=== PATIENT | female | born 1935 | race Caucasian/White ===

== ENCOUNTER 2018-01-27 11:32 | Emergency (ER) | payer MEDICARE, OTHER ==
[~2018-01-27] VITALS: Ht 162.6 cm; Wt 65.8 kg
[2018-01-27 11:50] VITALS: BP 203/75
--- NOTE | 2018-01-27 11:53 | NUR ---
ARRIVAL PATIENT ARRIVED TO ED3 VIA W/C WITH SPOUSE, C/O OF DIZZINESS,NAUSEA AND VOMITING TODAY, PATIENT STATES WENT SHE TURNED OVER THIS MORNING SHE FELT DIZZY, WENT ON TO BREAKFAST AND AFTER THAT SHE WENT BACK TO HER ROOM AND VOMITED, CALLED TO BRING TO THE ED FOR FURTHER EVAL.
--- NOTE | 2018-01-27 11:53 | ER.PDOC ---
General Chief Complaint: Nausea,Vomiting,Diarrhea Stated Complaint: N/V,LIGHTHEADED Time seen by MD: 11:52 Source: patient, family Exam Limitations: no limitations History of Present Illness Initial Comments Pt states that she was at a hotel this morning and after breakfast she started vomiting. She also states that when she turned the head she felt that her room was spinning, that sensation repeats in here Occurred: just prior to arrival Severity: moderate Associated Symptoms: vestibular, nausea/vomiting, sense of movement, spinning Decreased Ability to Stand: off balance Usually: walks w/o assistance Worsened By: changing position, movement of head Allergies: Coded Allergies: No Known Allergies (Unverified , 01/27/18) Home Meds No Active Prescriptions or Reported Meds Past Medical History Medical History: high cholesterol, hypertension Surgical History: hip, hysterectomy, knee Social History Smoking: non-smoker Alcohol Use: none Drug Use: none Review of Systems Constitutional: no symptoms reported Eyes: no symptoms reported Ears: see HPI, dizziness Nose: congestion, clear discharge Mouth: no symptoms reported Throat: no symptoms reported Respiratory: no symptoms reported Cardiovascular: no symptoms reported Gastrointestinal: see HPI, nausea, vomiting Genitourinary: no symptoms reported Musculoskeletal: no symptoms reported Skin: no symptoms reported Psychiatric/Neurological: no symptoms reported Physical Exam General Appearance: alert, no distress EENT: nml eye inspection, PERRL, no nystagmus (there is significant dizziness on labyrinthic maneuvers), nml ENT inspection, pharynx nml, TM's nml Neck: supple Respiratory: no resp distress, breath sounds nml CVS: reg rate & rhythm, heart sounds.nml Abdomen: non-tender, no organomegaly, no distention Skin: color nml, no rash, warm/dry Extremities: non-tender, nml ROM, no pedal edema Neuro/Psych: nml orientation, nml speech/cognition, nml mood/affect Cranial Nerves: nml as tested, no evidence of acute CVA Cerebellar: nml as tested Sensorimotor: nml motor, nml sensation Results/Orders Results/Orders Laboratory Tests Test 01/27/18 12:16 01/27/18 12:38 White Blood Count 8.0 10^3/uL (4.5-11.0) Red Blood Count 4.73 10^6/uL (4.00-5.20) Hemoglobin 13.9 g/dL (12.0-15.0) Hematocrit 40.0 % (36.0-46.0) Mean Corpuscular Volume 84.6 fL (78-100) Mean Corpuscular Hemoglobin 29.4 pg (26-34) Mean Corpuscular Hemoglobin Concent 34.8 g/dL (33-37) Red Cell Distribution Width 12.0 % (11.5-14.5) Platelet Count 210 10^3/uL (150-400) Mean Platelet Volume 9.6 fL (7.8-11.0) Neutrophils (%) (Auto) 86.0 % (41.0-85.0) Lymphocytes (%) (Auto) 10.8 % (24.0-44.0) Monocytes (%) (Auto) 2.6 % (5.0-12.0) Neutrophils # (Auto) 6.8 10^3/uL (1.8-7.7) Lymphocytes # (Auto) 0.9 10^3/uL (1.0-4.8) Monocytes # (Auto) 0.2 10^3/uL (0.3-0.8) Absolute Immature Granulocyte (auto 0.01 10^3 u/L (0-2) Eosinophils % 0.4 % (0.0-5.0) Basophils % 0.1 % (0.0-0.2) Basophils # 0.0 10^3/uL (0.0-0.1) Eosinophil Count 0.0 10^3/uL (0.0-0.2) Sodium Level 140 mmol/L (132-145) Potassium Level 3.9 mmol/L (3.6-5.2) Chloride Level 103.0 mmol/L (96-109) Carbon Dioxide Level 27.5 mmol/L (20.0-32) Anion Gap 13.4 Blood Urea Nitrogen 20 mg/dL (7-18) Creatinine 1.08 mg/dL (0.59-1.40) Estimated GFR () 58.8 (>/=60) BUN/Creatinine Ratio 18.0 Glucose Level 148 mg/dL (70-110) Calcium Level 10.2 mg/dL (8.4-10.5) Total Bilirubin 1.4 mg/dL (0.2-1.0) Aspartate Amino Transf (AST/SGOT) 22 U/L (0-35) Alanine Aminotransferase (ALT/SGPT) 28 U/L (12-78) Alkaline Phosphatase 120 U/L (50-136) Total Protein 7.3 g/dL (6.4-8.2) Albumin 4.4 g/dL (3.4-5.0) Globulin 2.9 Amylase Level 73 U/L (25-115) Lipase 265 U/L (114-286) Percent Immature Gran (Cell Imm) 0.10 % (0.00-0.50) Urine Collection Type VOID Urine Color YELLOW (YELLOW) Urine Appearance CLEAR (CLEAR) Urine Bilirubin NEGATIVE MG/DL (NEGATIVE) Urine Ketones NEGATIVE (NEGATIVE) Urine Specific [place] 1.010 (1.005-1.035) Urine pH 8 (5.0-6.0) Urine Protein NEGATIVE (NEGATIVE) Urine Urobilinogen NORMAL (NEGATIVE) Urine Nitrate NEGATIVE (NEGATIVE) Urine Leukocyte Esterase NEGATIVE (NEGATIVE) Urine Blood NEGATIVE (NEGATIVE) Urine Glucose NORMAL (NEGATIVE) Administered Medications Medications (Trade) Dose Ordered Sig/Svitlana Route PRN Reason Start Time Stop Time Status Last Admin Dose Admin Sodium Chloride 1,000 ml @ 1,000 mls/hr Q1H STAT IV 01/27/18 12:07 01/27/18 13:06 DC 01/27/18 12:34 Ondansetron HCl (Zofran) 4 mg STAT STAT IV 01/27/18 12:07 01/27/18 12:09 DC 01/27/18 12:34 Meclizine HCl (Antivert) 25 mg Q6H PRN PO DIZZINESS 01/27/18 12:30 02/26/18 12:29 01/27/18 12:52 Clonidine (Catapres) 0.2 mg STAT STAT PO 01/27/18 12:47 01/27/18 12:49 DC 01/27/18 12:52 Departure Time of Disposition: 13:24 Disposition: 01 HOME, SELF-CARE Impression: Primary Impression: Nausea & vomiting Additional Impressions: Dizziness Labyrinthitis, bilateral Condition: Stable Patient Instructions: Labyrinthitis (Inner Ear Inflammation)-Brief Referrals: PCP,UNKNOWN (PCP) PRIMARY CARE PROVIDER Scripts No Active Prescriptions or Reported Meds Duration or Time Spent with Pa: 20 Problem Qualifiers CHI ALLISON MD Jan 27, 2018 11:53
[2018-01-27] MEDS ORDERED: NS 1000ML 1,000 ML STA (12:07)
[2018-01-27] MEDS ORDERED: ZOFRAN IV STA (12:07)
--- NOTE | 2018-01-27 12:10 | PCM.EKG ---
Formerly [facility] Test Date: 2018-01-27 Test Time: 11:58:30 Pat Name: LORETO HILL Department: [id number] Room: Gender: F Food Management Aide: PREM [id number] : 1935 Requested By: CHI ALLISON Order Number: [id number] Reading MD: Measurements Intervals [place] Rate: 73 P: 73 [place]: 184 QRS: -64 QRSD: 136 T: 98 QT: 442 QTc: 486 Interpretive Statements Normal sinus rhythm Left axis deviation Left bundle branch block Abnormal ECG No previous ECG available for comparison Please click the below link to view image of tracing.
[2018-01-27] MEDS ORDERED: ZOFRAN ONE (12:18)
[2018-01-27] MEDS ORDERED: NS 1000ML 1,000 ML ONE (12:18)
[2018-01-27 12:21] LABS: BASOPHIL % 0.1 % (0.0-0.2); EOSINOPHIL % 0.4 % (0.0-5.0); HEMOGLOBIN 13.9 g/dL (12.0-15.0); LYMPHOCYTES # 0.9 10^3/uL (1.0-4.8); LYMPHOCYTES % 10.8 % (24.0-44.0); MEAN CELL HGB 29.4 pg (26-34); MEAN CELL HGB CONCENTRATION 34.8 g/dL (33-37); MEAN CORP VOLUME 84.6 fL (78-100); MEAN PLATELET VOLUME 9.6 fL (7.8-11.0); MONOCYTES # 0.2 10^3/uL (0.3-0.8); MONOCYTES % 2.6 % (5.0-12.0); NEUTROPHIL # 6.8 10^3/uL (1.8-7.7)
[2018-01-27] MEDS ORDERED: ANTIVERT PO PRN (12:30)
[2018-01-27] MEDS ORDERED: CATAPRES ONE (12:41)
[2018-01-27 12:43] LABS: CALCIUM 10.2 mg/dL (8.4-10.5); CARBON DIOXIDE 27.5 mmol/L (20.0-32)
[2018-01-27] MEDS ORDERED: CATAPRES PO STA (12:47)
[2018-01-27 12:49] LABS: BILIRUBIN,URINE NEGATIVE (NEGATIVE); UROBILINOGEN,URINE NORMAL (NEGATIVE)
[2018-01-27 12:55] LABS: APPEARANCE,URINE CLEAR (CLEAR); UA COLOR YELLOW (YELLOW)
[2018-01-27 13:00] VITALS: BP 202/88
--- NOTE | 2018-01-27 13:54 | NUR ---
IV 20G IV D/C'D TIP INTACT TO LEFT AC, NO SIGN OF INFILTRATION NOTED. AWAITING DISCHARGE INSTRUCTIONS.
[2018-01-27 13:55] VITALS: BP 184/77
[2018-01-27 14:01] VITALS: BP 184/77
--- NOTE | 2018-01-27 14:20 | NUR ---
STATUS ATTEMPTED TO CALL DAUGHTER NO ANSWER, CALLED GRANDDAUGHTER WILL ATTEMPT TO CALL DAUGHTER.
== END 2018-01-27 14:07 | disposition home or self-care (01) ==
LOC: ER 11:32
DX: R11.2 Nausea with vomiting, unspecified (principal); R42 Dizziness and giddiness; H83.03 Labyrinthitis, bilateral; E78.00 Pure hypercholesterolemia, unspecified; R09.81 Nasal congestion; I10 Essential (primary) hypertension; Z90.710 Acquired absence of both cervix and uterus
CPT/HCPCS: 36415; 80053; 81002; 82150; 83690; 85025; 93005; 96361; 96374; 99285; J2405; J7030